=== PATIENT | female | born 1930 | race Caucasian/White ===

== ENCOUNTER 2016-11-07 06:10 | Day surgery (SDC) | payer OTHER ==
[2016-11-06 14:16] LABS: CALCIUM 8.2 mg/dL (8.5-10.1); CARBON DIOXIDE 29.3 mmol/L (21-32); CHLORIDE SERUM 103 mmol/L (98-107); CREATININE SERUM 1.1 mg/dL (0.6-1.0); GLUCOSE SERUM 87 mg/dL (74-106); POTASSIUM SERUM 4.3 mmol/L (3.5-5.1); SODIUM SERUM 137 mmol/L (136-145)
[2016-11-06 14:30] LABS: BASOPHIL % 0.5 % (0-2); PLATELET COUNT 222 x10^3mcL (130-400); RED CELL DISTRIBUTION WIDTH 13.8 % (11.5-14.5)
[~2016-11-07] VITALS: Ht 144.8 cm; Wt 50.8 kg
[~2016-11-07 06:10] MED LIST: ALPRAZOLAM0.5 M2 PO; AUGMENTIN1 TA2 PO; CIP250 PO; COL100 PO; ECO81 PO; ENALAPRIL2.5 MG PO; LAC PO; LEVOTHYROXINE PO; LOTENSIN10 MG PO; METOPROLOL SR25 MG PO; METOPROLOL SUCC25 M1 PO; NAPROXEN500 MG PO; PRI20 PO; TRAMADOL HCL50 MG PO; TYL2 PO; VOLTAREN75 MG PO; XANAX0.5 MG PO; [UNRECOGNIZED DRUG - OTHER] PO; [UNRECOGNIZED DRUG - OTHER] PO
[2016-11-07 06:32] VITALS: BP 153/71
[2016-11-07 11:06] VITALS: BP 117/58
== END 2016-11-07 11:05 | disposition home or self-care (01) ==
LOC: DS 06:10 → OR 07:30 → GI 07:30 → DS 11:05
PROVIDERS: Internal Medicine
PROC: 0FC98ZZ Extirpation of Matter from Common Bile Duct, Via Natural or Artificial Opening Endoscopic (ICD-10-PCS; principal; 2016-11-07 07:30)
PROC: 0FPB8DZ Removal of Intraluminal Device from Hepatobiliary Duct, Via Natural or Artificial Opening Endoscopic (ICD-10-PCS; 2016-11-07 07:30)
DX: K80.50 Calculus of bile duct without cholangitis or cholecystitis without obstruction (principal); I10 Essential (primary) hypertension; E11.9 Type 2 diabetes mellitus without complications; E03.9 Hypothyroidism, unspecified
CPT/HCPCS: 43262; 82962; C1769; J1610; J2704; J7030; Q0092; Q9967